=== PATIENT | female | born 1995 | race Hispanic/Latino ===

== ENCOUNTER 2017-10-08 19:44 | Emergency (ER) | payer BC ==
[2017-10-08 19:51] VITALS: RESP 18; TEMP 98.3
[2017-10-08 19:52] VITALS: BMI 24.0
--- NOTE | 2017-10-08 21:03 | ED PDOC ---
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 Patient also reports feeling chest pain, very nervous and more tremulous than usual which prompted ED visit. Patient reports she just has difficulty adjusting to her new life in [place], she was living in the [place] for x4 years but when she broke up with her boyfriend she came back to [place] for new job and life has been significantly more stressful. For the past 2 weeks she has been drinking almost every day, gin x4 glasses. Patient states she didn't drink anything today. She denies any fever, chills, cough, shortness of breath, numbness, weakness, depression, suicidal or homicidal ideation. No recent travel and no known sick contacts. No further medical complaints. PMD: None provided. Past Medical History Reviewed: Historical Data, Nursing Documentation, Vital Signs Vital Signs: Last Vital Signs Temp 98.3 F 10/08/17 19:50 Pulse 123 H 10/08/17 19:50 Resp 18 10/08/17 19:50 BP 158/96 H 10/08/17 19:50 Pulse Ox 97 10/08/17 19:50 - Medical History PMH: Anemia Other PMH: essential tremors - Surgical History Surgical History: No Surg Hx - Family History Family History: States: No Known Family Hx - Social History Alcohol: > 2 Drinks/Day - Home Medications Home Medications: Ambulatory Orders Medication Instructions Recorded LORazepam [Ativan] 1 mg PO TID PRN #10 tab 10/08/17 - Allergies Allergies/Adverse Reactions: Allergies Allergy/AdvReac Type Severity Reaction Status Date / Time No Known Allergies Allergy Verified 10/08/17 19:55 Review of Systems ROS Statement: Except As Marked, All Systems Reviewed And Found Negative Constitutional: Negative for: Fever, Chills Cardiovascular: Positive for: Chest Pain Respiratory: Negative for: Cough, Shortness of Breath Psych: Positive for: Anxiety, Other (more tremulous ). Negative for: Depression , Suicidal ideation (or homicidal ideation) Physical Exam - Reviewed Nursing Documentation Reviewed: Yes Vital Signs Reviewed: Yes - Physical Exam Comments: GENERAL APPEARANCE: Patient is awake, alert, oriented x 3, in no acute distress. Anxious and tremulous SKIN: Warm, dry; (-) cyanosis HEAD: (-) scalp swelling, (-) scalp tenderness. EYES: (-) conjunctival pallor, (-) scleral icterus, (-) nystagmus. ENMT: Mucous membranes moist. Airway patent: (-) stridor. NECK: (-) tenderness, (-) stiffness, (-) lymphadenopathy. CHEST AND RESPIRATORY: (-) rales, (-) rhonchi, (-) wheezes; breath sounds equal. ABDOMEN: Soft, (-) distention, (-) tenderness, (-) guarding. NEURO AND PSYCH: Mental status as above. Affect: Calm and cooperative. 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 Pupils equal and reactive; EOMI; (-) facial asymmetry; tongue and uvula midline. Strength and DTRs symmetric. - ECG O2 Sat by Pulse Oximetry: 97 (RA) Pulse Ox Interpretation: Normal Medical Decision Making Medical Decision Making: Initial Impression: panic attack considered ETOH withdrawal Initial Plan: --Ativan 1 mg PO --Reevaluation EKG : NSR at 94 bpm, no acute ST changes, as read by PA On re-evaluation, patient reports improvement of symptoms, denies any CP, dizziness, SOB or numbness. On exam, patient remains AAOx3, in no acute distress , she is calm and no longer tremulous. Diagnostic results d/w the patient in great detail. Diagnosis of anxiety with possible alcohol withdrawal d/w the patient. Based on history and exam, plan will be for outpatient follow up. Patient instructed to follow-up with referral provided in 1-2 days without fail. Advised to take medication as prescribed. Return to the emergency room at any time for any new or worsening symptoms. Patient states she fully agrees with and understands discharge instructions. States that she agrees with the plan and disposition. Verbalized and repeated discharge instructions and plan. I have given the patient opportunity to ask any additional questions. Scribe Attestation: Documented by Han Morin, acting as a scribe for Nilda Holcomb PA-C Provider Scribe Attestation: All medical record entries made by the Scribe were at my direction and personally dictated by me. I have reviewed the chart and agree that the record accurately reflects my personal performance of the history, physical exam, medical decision making, and the department course for this patient. I have also personally directed, reviewed, and agree with the discharge instructions and disposition. Disposition - Clinical Impression Clinical Impression: Anxiety attack - Patient ED Disposition Is Patient to be Admitted: No Counseled Patient/Family Regarding: Studies Performed, Diagnosis, Need For Followup, Rx Given - Disposition Referrals: FAMILY PROVIDERMANDY [Family Provider] - Lj Stuart MD [Staff Provider] - Disposition: Routine/Home Disposition Time: 22:00 Condition: STABLE Additional Instructions: Thank you for letting us take care of you today. You were treated for anxiety attack, consider alcohol withdrawal. The emergency medical care you received today was directed at your acute symptoms. If you were prescribed any medication , please fill it and take as directed. It may take several days for your symptoms to resolve. Return to the Emergency Department if your symptoms worsen , do not improve, or if you have any other problems. Please contact one of the physicians/clinics you have been referred to that are listed on the Patient Visit Information form that is included in your discharge packet. Bring any paperwork you were given at discharge with you along with any medications you are taking to your follow up visit. Our treatment cannot replace ongoing medical care by a primary care provider (PCP) outside of the emergency department. Thank you for allowing the [facility] team to be part of your care today. 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
[2017-10-08 22:32] VITALS: PULSE 98; O2SAT 99
[2017-10-08 22:40] VITALS: BP 137/80
--- NOTE | 2017-10-09 11:20 | CARD ---
APPROVED REPORT EKG Measurement Heart [id number] <Conclusion> Normal sinus rhythm Normal ECG
== END 2017-10-08 22:31 | disposition home or self-care (01) ==
LOC: SUPCPDRO 19:44 → H.ER 19:44
DX: F41.0 Panic disorder [episodic paroxysmal anxiety] (principal); G25.0 Essential tremor

== ENCOUNTER 2017-12-23 06:15 | Emergency (ER) | payer BC ==
[2017-12-23 06:15] VITALS: BMI 24.0
--- NOTE | 2017-12-23 07:22 | ED PDOC ---
HPI: Female Pain Time Seen by Provider: 12/23/17 07:08 Chief Complaint (Nursing): Female Genitourinary Chief Complaint (Provider): Female Genitourinary History Per: Patient History/Exam Limitations: no limitations Onset/Duration Of Symptoms: Hrs (x1) Associated Symptoms: Urinary Symptoms (dysuria). denies: Fever, Chills, Back Pain Additional Complaint(s): Asia Acosta is a 22 y/o female with a past medical history of UTI, who presents to the ED complaining of burning urination and hematuria onset x1 hour ago. Patient reports a history of UTIs in the past but never had bloody urine which prompted ED visit. 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 Patient denies any fever, chills, nausea, vomiting, abdominal pain, back pain or other medical concerns. PMD: None provided Last Menstral Period: x1 week Past Medical History Reviewed: Historical Data, Nursing Documentation, Vital Signs Vital Signs: Last Vital Signs Temp 98.3 F 12/23/17 06:27 Pulse 96 H 12/23/17 06:27 Resp 16 12/23/17 06:27 BP 139/93 H 12/23/17 06:27 Pulse Ox 97 12/23/17 06:27 - Medical History PMH: Anemia, Anxiety - Surgical History Surgical History: No Surg Hx - Family History Family History: States: Unknown Family Hx - Social History Current smoker - smoking cessation education provided: No Alcohol: None Drugs: Denies - Home Medications Home Medications: Ambulatory Orders Medication Instructions Recorded LORazepam [Ativan] 1 mg PO TID PRN #10 tab 10/08/17 - Allergies Allergies/Adverse Reactions: Allergies Allergy/AdvReac Type Severity Reaction Status Date / Time No Known Allergies Allergy Verified 12/23/17 06:52 Review of Systems ROS Statement: Except As Marked, All Systems Reviewed And Found Negative Constitutional: Negative for: Fever, Chills Gastrointestinal: Negative for: Nausea, Vomiting, Abdominal Pain Genitourinary Female: Positive for: Dysuria, Hematuria Musculoskeletal: Negative for: Back Pain Physical Exam - Reviewed Nursing Documentation Reviewed: Yes Vital Signs Reviewed: Yes - Physical Exam Appears: Positive for: Non-toxic, No Acute Distress Head Exam: Positive for: ATRAUMATIC, NORMOCEPHALIC Skin: Positive for: Normal Color, Warm Eye Exam: Positive for: Normal appearance, EOMI, PERRL Neck: Positive for: Normal, Painless ROM, Supple Cardiovascular/Chest: Positive for: Regular Rate, Rhythm. Negative for: Murmur Respiratory: Positive for: Normal Breath Sounds. Negative for: Respiratory Distress Gastrointestinal/Abdominal: Positive for: Normal Exam, Soft. Negative for: Tenderness Back: Positive for: Normal Inspection. Negative for: L CVA Tenderness, R CVA Tenderness Extremity: Positive for: Normal ROM (upper and lower extremities). Negative for : Pedal Edema, Deformity Neurologic/Psych: Positive for: Alert, Oriented. Negative for: Motor/Sensory Deficits - Laboratory Results Urine dip results: Positive for: Leukocyte Esterase - ECG O2 Sat by Pulse Oximetry: 97 (RA) Pulse Ox Interpretation: Normal Medical Decision Making Medical Decision Making: Time: 07:23 Initial Impression: UTI Initial Plan: --ED Urine --ED Urine dipstick --Reevaluation Scribe Attestation: Documented by Han Morin & Mike Chambers acting as a scribe for Mirna Maher MD. Scribe Attestation: All medical record entries made by the Scribe were at my direction and personally dictated by me. I have reviewed the chart and agree that the record accurately reflects my personal performance of the history, physical exam, medical decision making, and the department course for this patient. I have also personally directed, reviewed, and agree with the discharge instructions and disposition. Disposition - Clinical Impression Clinical Impression: Cystitis - Patient ED Disposition Is Patient to be Admitted: No Doctor Will See Patient In The: Office Counseled Patient/Family Regarding: Diagnosis, Need For Followup, Rx Given - Disposition Referrals: [facility] [Outside] Disposition: Routine/Home Disposition Time: 08:06 Condition: STABLE Instructions: Urinary Tract Infections in Adults Forms: [facility] (Portuguese) - POA Present On Arrival: None
[2017-12-23 08:17] VITALS: BP 116/75; PULSE 77; RESP 14; TEMP 98; O2SAT 100
== END 2017-12-23 08:18 | disposition home or self-care (01) ==
LOC: H.ER 06:15
DX: N30.90 Cystitis, unspecified without hematuria (principal)